=== PATIENT | male | born 1955 | race Caucasian/White ===

== ENCOUNTER → 2017-08-22 | Outpatient (CLI) | payer BC ==
[~2017-08-22] MED LIST: APAP PO; ASPIRIN E.C. 8181 MG PO; BUTAL PO; CAFF PO; GLUCOPHAGE500 MG/TAB PO; PRILOSEC 20MG20 MG PO; PRINIVIL10 MG PO; PROVENTIL0.09 MG/A1 IH; SYNTHROID0.2 MG/TAB PO; TOPROL XL50 MG PO
== END ==
LOC: COL.VAS 08:53
DX: I65.21 Occlusion and stenosis of right carotid artery (principal); R42 Dizziness and giddiness

== ENCOUNTER → 2018-05-15 | Outpatient (CLI) | payer BC | LOC: COL.RAD 14:33 | DX: K76.0 Fatty (change of) liver, not elsewhere classified (principal) ==

== ENCOUNTER → 2020-11-08 | Outpatient (CLI) | payer MEDICARE, BC ==
[~2020-11-08] MED LIST changes: +ACTOS30 MG PO; +ARMOUR THYROID60 MG PO; +TOPROL XL 50MG50 MG PO
[2020-11-08 10:15] VITALS: BP 132/83; PULSE 70
[2020-11-08 13:00] VITALS: BP 152/79; PULSE 71
== END ==
LOC: COL.RAD 09:45
DX: R59.0 Localized enlarged lymph nodes (principal)